=== PATIENT | male | born 1980 | race Caucasian/White ===

== ENCOUNTER 2020-08-27 21:36 | Emergency (ER) | payer SELFPAY ==
[~2020-08-27] VITALS: Ht 180.3 cm; Wt 75.0 kg
[2020-08-27 21:55] VITALS: BP 140/99; Ht 180.3 cm; Wt 75.0 kg
== END 2020-08-27 22:09 | disposition left against medical advice (07) ==
LOC: D.ER 21:36
DX: R10.9 Unspecified abdominal pain (principal)